=== PATIENT | male | born 1935 | race Caucasian/White ===

== ENCOUNTER 2017-07-08 11:14 | Emergency (ER) | payer MEDICARE, BC ==
[2017-07-08] MEDS ORDERED: Furosemide 40 MG/4 ML VIAL IVPUSH ONE (11:33)
[2017-07-08] MEDS ORDERED: Sodium Chloride 0.9% 10 ML Syringe FLUSH PRN (11:33)
--- NOTE | 2017-07-08 11:47 | EDM.PDOC ---
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 He has a hx of LE edema and CHF. Is more SOB and has more leg swelling lately. No chest pain or black/bloody stools. Is from [place] and his primary is there. Sits with his legs down most of the day. Due to hip pain he is unable to elevate the legs. Does have worse SOB with lying. Has oxygen at low flow at the [facility]. Hgb 06/26/17 was 8.3 Onset: Gradual Onset Date: 07/06/17 Duration: Day(s):, Getting Worse Location: Reports: Chest, Lower Extremity, Left, Lower Extremity, Right Quality: Reports: Other (no pain) Severity: Moderate Improves with: Reports: None Worsens with: Reports: Other (? time) Context: Reports: Other (Hx of CHF and bilateral LE edema) Associated Symptoms: Reports: Shortness of Breath, Weakness. Denies: Chest Pain , Cough, Diaphoresis, Fever/Chills Treatments [employer]: Reports: Other (see below) (usual meds) - Related Data Allergies Allergy/AdvReac Type Severity Reaction Status Date / Time No Known Allergies Allergy Verified 07/08/17 11:49 Home Meds: Home Meds Lisinopril [Lisinopril] 5 mg PO BID 11/20/14 [History] Metoprolol Tartrate [Lopressor] 50 mg PO BID 11/20/14 [History] Spironolactone [Spironolactone] 25 mg PO BID 11/20/14 [History] Furosemide 40 mg PO Q48H #7 tablet 07/08/17 [Rx] Past Medical History Other Genitourinary History: bladder ca Social & Family History - Tobacco Use Smoking Status *Q: Never Smoker Second Hand Smoke Exposure: No - Recreational Drug Use Recreational Drug Use: No ED ROS GENERAL - Review of Systems Review Of Systems: See Below Constitutional: Reports: Weakness HEENT: Reports: No Symptoms Respiratory: Reports: Shortness of Breath, Other (orthopnea). Denies: Wheezing , Cough, Sputum, Hemoptysis Cardiovascular: Reports: No Symptoms GI/Abdominal: Reports: No Symptoms : Reports: No Symptoms Musculoskeletal: Reports: No Symptoms Skin: Reports: Other (both LE's weeping, R > L) Neurological: Reports: No Symptoms Psychiatric: Reports: No Symptoms ED EXAM, GENERAL - Physical Exam Exam: See Below Exam Limited By: No Limitations General Appearance: Alert, WD/WN, No Apparent Distress Eye Exam: Bilateral Eye: PERRL, Other (pale conjunctivas) Ears: Normal External Exam, Normal Canal, Hearing Grossly Normal Ear Exam: Bilateral Ear: Auricle Normal, Canal Normal Nose: Normal Inspection, Normal Mucosa Throat/Mouth: Normal Inspection, Normal Lips, Normal Oropharynx, Normal Voice, No Airway Compromise Head: Atraumatic, Normocephalic Neck: Normal Inspection, Supple, Non-Tender Respiratory/Chest: No Respiratory Distress, No Accessory Muscle Use, Rales (at both bases) Cardiovascular: Regular Rate, Rhythm GI/Abdominal: Normal Bowel Sounds, Soft, Non-Tender, No Distention Back Exam: Normal Inspection. No: CVA Tenderness (R), CVA Tenderness (L) Extremities: Pedal Edema (anasarca of both LE's below the knees with skin weeping present.). No: No Pedal Edema, Lam's Sign Neurological: Alert, Oriented, CN II-XII Intact, Normal Cognition, No Motor/ Sensory Deficits Psychiatric: Normal Affect, Normal Mood Skin Exam: Warm, No Rash, Other (weeping of skin below the knees, R>L) Course - Vital Signs Last Recorded V/S: Last Vital Signs Temp 36.2 C 07/08/17 11:15 Pulse 72 07/08/17 11:15 Resp 21 H 07/08/17 11:15 BP 117/94 H 07/08/17 11:15 Pulse Ox 88 L 07/08/17 11:15 - Orders/Labs/Meds Orders: Active Orders 24 hr Category Date Time Status Sodium Chloride 0.9% [Saline Flush] Med 07/08/17 11:33 Active 10 ml FLUSH ASDIRECTED PRN Saline Lock Insert [OM.PC] Routine Oth 07/08/17 11:33 Ordered Medication Orders Sodium Chloride (Saline Flush) 10 ml FLUSH ASDIRECTED PRN PRN Reason: Keep Vein Open Labs: Laboratory Tests 07/08/17 07/08/17 07/08/17 Range/Units 11:11 11:11 11:50 WBC 5.1 (4.5-12.0) X10-3/uL RBC 2.54 L (4.30-5.75) x10(6)uL Hgb 7.8 L (11.5-15.5) g/dL Hct 23.4 L (30.0-51.3) % MCV 92.1 (80-96) fL MCH 30.6 (27.7-33.6) pg MCHC 33.2 (32.2-35.4) g/dL RDW 15.4 (11.5-15.5) % Plt Count 157 (125-369) X10(3)uL Sodium 131 L (135-145) mmol/L Potassium 5.0 (3.5-5.3) mmol/L Chloride 95 L (100-110) mmol/L Carbon Dioxide 28 (21-32) mmol/L BUN 20 H (7-18) mg/dL Creatinine 0.7 (0.70-1.30) mg/dL Est Cr Clr Drug Dosing TNP Estimated GFR (MDRD) > 60 (>60) BUN/Creatinine Ratio 28.6 H (9-20) Glucose 107 (80-116) mg/dL Calcium 9.0 (8.6-10.2) mg/dL Magnesium 2.0 (1.8-2.5) mg/dL Meds: Medications Generic Name Dose Route Start Last Admin Trade Name Freq PRN Reason Stop Dose Admin Sodium Chloride 10 ml 07/08/17 11:33 Saline Flush FLUSH ASDIRECTED PRN Keep Vein Open Discontinued Medications Generic Name Dose Route Start Last Admin Trade Name Freq PRN Reason Stop Dose Admin Furosemide 80 mg 07/08/17 11:33 07/08/17 11:49 Lasix IVPUSH 07/08/17 11:34 80 mg NOW ONE Administration Departure - Departure Time of Disposition: 13:40 Disposition: Home, Self-Care 01 Condition: Fair Clinical Impression: Hyponatremia Fluid overload Qualifiers: Hypervolemia type: unspecified Qualified Code(s): E87.70 - Fluid overload, unspecified Anemia Qualifiers: Anemia type: unspecified type Qualified Code(s): D64.9 - Anemia, unspecified - Discharge Information Prescriptions: Furosemide 40 mg PO Q48H #7 tablet Referrals: PCP,Not In Area [Primary Care Provider] - Forms: ED Department Discharge - My Orders Last 24 Hours: My Active Orders 07/08/17 11:33 Sodium Chloride 0.9% [Saline Flush] 10 ml FLUSH ASDIRECTED PRN Saline Lock Insert [OM.PC] Routine - Assessment/Plan Last 24 Hours: My Active Orders 07/08/17 11:33 Sodium Chloride 0.9% [Saline Flush] 10 ml FLUSH ASDIRECTED PRN Saline Lock Insert [OM.PC] Routine
[2017-07-08 15:48] VITALS: BP 112/83
== END 2017-07-08 15:40 | disposition home or self-care (01) ==
LOC: FB.ED 11:14
DX: E87.1 Hypo-osmolality and hyponatremia (principal); E87.70 Fluid overload, unspecified; D64.9 Anemia, unspecified
CPT/HCPCS: 36415; 80048; 83735; 85027; 96374; 99284; J1940